=== PATIENT | female | born 1960 | race Two or more races ===

== ENCOUNTER 2020-05-25 20:06 | Emergency (ER) | payer BC, OTHER ==
[~2020-05-25] VITALS: Ht 167.6 cm; Wt 90.7 kg
[2020-05-25] MEDS ORDERED: KETOROLAC TROMETH 60MG/2ML VIAL IM ONE (21:15)
[2020-05-25 22:20] VITALS: BP 135/76
== END 2020-05-25 22:38 | disposition home or self-care (01) ==
LOC: ER 20:06
DX: S93.402A Sprain of unspecified ligament of left ankle, initial encounter (principal); E11.9 Type 2 diabetes mellitus without complications; W19.XXXA Unspecified fall, initial encounter; Y93.89 Activity, other specified; Y92.89 Other specified places as the place of occurrence of the external cause; Y99.8 Other external cause status
CPT/HCPCS: 70450; 73610; 96372; 99284; J1885